=== PATIENT | male | born 1950 | race Caucasian/White ===

== ENCOUNTER 2016-04-27 11:55 | Day surgery (SDC) | payer MEDICARE, OTHER ==
[~2016-04-27] VITALS: Ht 172.7 cm; Wt 122.6 kg
[2016-04-27] VITALS (9 sets, daily range): BP systolic 122–144; BP diastolic 67–92; PULSE 70–81; RESP 10–20; O2SAT 92–98
[~2016-04-27 11:55] MED LIST: ACAI500C PO; ASCO100089 PO; ATOR80TA PO; CHROMIUM GTF; CINN500C14 PO; COQ10; CeFAZolin Inj 3 GM in Dextrose 5% 50 ML IV ONE; DILT120C10 PO; FURO40TA4 PO; GLUC1CAP8 PO; LISI10TA PO; MAGN400T4 PO; METF850T2 PO; METO-274 PO; MULT-1073 PO; POTA10TA12 PO; SILD20TA14 PO; WARF5TAB7 PO; [UNRECOGNIZED DRUG - OTHER]
[2016-04-27] MEDS ORDERED: Propofol 10,000 mCg/mL 20 mL Inj ONE (11:56)
[2016-04-27] MEDS ORDERED: MetoCLOpramide 5 mg/mL 2 mL Inj ONE (11:56)
[2016-04-27] MEDS ORDERED: Ondansetron 2 mg/mL 2 mL Inj ONE (11:56)
[2016-04-27] MEDS ORDERED: fentaNYL-PF 50 mCg/mL 2 mL Inj ONE (11:56)
[2016-04-27] MEDS ORDERED: Phenylephrine 10,000 mCg/mL Inj ONE (11:56)
[2016-04-27] MEDS: Lactated Ringer's 1,000 ML IV SCH ×2 (12:40→14:24)
[2016-04-27] MEDS ORDERED: CeFAZolin 2 Gm/50 mL D5W Duplex Bag IV ONE (12:54)
[2016-04-27 13:30] LABS: INR 1.2 ratio
--- NOTE | 2016-04-27 13:43 | PCM.HPANE ---
Patient Data Surgeon Admitting Provider: Attending Provider:Sherrie Mcdonald MD Primary Care Physician:Kendall Butler MD Other Provider[facility] Anest[facility] Reason for Visit Bladder Tumor Ht/WT & BMI Height (Feet): 5 Height (Inches): 8 Weight (Kilograms): 122.6 Body Mass Index 40.00 Allergies Coded Allergies: amiodarone (Verified Allergy, Severe, VENTRICULAR FIBRILLATION/TORSADE, 04/27/16) Past Anesthesia History Anesthesia History: Denies:: Anesthesia Reactions, Fam Anesthesia Reaction, Malignant Hyperthermia Diabetes History Hx Diabetes?: Yes Type of Diabetes: Type II Glycemic Control: Oral Medication Current Bedside Blood Glucose: 113 MRSA MRSA: No Medications Blood Thinner: Coumadin Hypertension Medication: Yes Home Meds Incl Beta Raymundo: Yes Date Beta Raymundo Taken: Apr 27, 2016 Time Beta Raymundo Taken: 629 Reported Medications Warfarin Sodium 5 Mg Tablet2.5 Mg PO mon, fri 30 Days Ref 0 04/26/16 Warfarin Sodium 5 Mg Tablet5 Mg PO 5xweekly 30 Days Ref 0 04/26/16 Ascorbic Acid (Vitamin C)1,000 Mg Tab.chew1,000 Mg PO DAILY Ref 0 04/26/16 Sildenafil Citrate (Sildenafil)20 Mg Tyowls258 Mg PO PRN erectile dysfunction 04/26/16 Potassium Chloride ER 10 Meq Azkykt91 Meq PO DAILY Ref 0 TAKE WITH FOOD 04/26/16 Metoprolol Succinate ER 100 Mg Tab.er.38z453 Mg PO DAILY Ref 0 04/26/16 Metformin 850 Mg Egbvnh968 Mg PO TID Ref 0 04/26/16 Magnesium Oxide 400 Mg Msligi822 Mg PO BID 04/26/16 Lisinopril 10 Mg Fsnhtq15 Mg PO DAILY 30 Days Ref 0 04/26/16 Atorvastatin (Lipitor)80 Mg Ejqbgp97 Mg PO DAILY Ref 0 04/26/16 Gluc Rodriguez/MSM/Magnesium/Vit C (Glucosamine Complex-MSM Cap)1 Each Capsule1 Each PO DAILY 04/26/16 [jia extract] No Conflict Jvyvv023 Mg BID 04/26/16 Furosemide 40 Mg Jkbaic63 Mg PO DAILY 04/26/16 Diltiazem ER 120 Mg Cap.er.78k480 Mg PO DAILY Ref 0 04/26/16 [Coq10] No Conflict Hmjap244 Mg DAILY 04/26/16 Cinnamon Bark (Cinnamon)500 Mg Capsule1,000 Mg PO DAILY 04/26/16 [chromium GTF] No Conflict Fmgfk201 Mcg DAILY 04/26/16 Multivits-Min/FA/Lycopene/Lut (Centrum Silver Tablet)1 Each Tablet1 Each PO DAILY 04/26/16 Acai Malin Extract (Acai Malin)500 Mg Dkwxfue669 Mg PO DAILY 04/26/16 Discontinued Reported Medications Garlic 500 Mg Wlxxrto101 Mg PO DAILY 12/13/15 Jia Root (Jia)250 Mg Qsevktc222 Mg PO DAILY 12/13/15 Diltiazem ER 120 Mg Cap.er.36r827 Mg PO DAILY Ref 0 08/15/15 Sildenafil Citrate (Sildenafil)20 Mg Gaxnlu957 Mg PO PRN 04/20/15 Furosemide (Lasix)40 Mg Ebkrds26 Mg PO DAILY 30 Days Ref 0 04/20/15 Chromium Amino Acid Chelate (Chromium)400 Mcg Qeblwv333 Mcg PO DAILY 04/20/15 Lisinopril (Zestril)10 Mg Tablet5 Mg PO DAILY 30 Days Ref 0 12/16/14 Warfarin Sodium 2.5 Mg Tablet5 Mg PO DAILY 30 Days Ref 0 08/27/14 Turmeric Root Extract (Turmeric)500 Mg Hrpwuea242 Mg PO DAILY 08/27/14 [alpesh red suppl] No Conflict Nchqs785 Mg PO DAILY 08/27/14 Potassium Chloride ER 10 Meq Tablet.er10 Meq PO DAILY 30 Days Ref 0 TAKE WITH FOOD 08/27/14 oxyCODONE-Acetaminophen 5-325 mg 1 Each Tablet1 Tab PO Q6H PRN For Pain Ref 0 08/27/14 Metoprolol Tartrate 100 Mg Cbvnru324 Mg PO BID 30 Days Ref 0 08/27/14 Metformin 500 Mg Venywd618 Mg PO BIDWM 30 Days Ref 0 08/27/14 Magnesium Oxide (Magnesium)400 Mg Sowwvvh249 Mg PO BID 08/27/14 Atorvastatin (Lipitor)80 Mg Whducc96 Mg PO DAILY 30 Days Ref 0 08/27/14 Gluc/Govind-MSM#1/Vit C/Naun/Bor (Ludochx-Gzpsa-RMX Complex Cplt)1 Each Tablet2 Each PO DAILY 08/27/14 Ubidecarenone/Vit E Acetate (Co Q-10 100 mg Softgel)1 Each Capsule1 Each PO DAILY 08/27/14 Cinnamon Bark (Cinnamon)500 Mg Capsule2 Capsule PO DAILY 08/27/14 Multivits-Min/FA/Lycopene/Lut (Centrum Silver Tablet)1 Each Tablet1 Each PO 08/27/14 History History of ENT Problems?: Yes Hx of Heart Problems?: Yes Cardiovascular History: Positive for:: AICD (BI-V) Abdominal Aortic Aneurism Atrial Fibrillation (hx PAF) Cardiac Surgery (Bi-V AICD, hx of stent ot LAD 2012) Congestive Heart Failure (hx of cardiomyopathy) Edema (Pedal occ.) Hypertension Irregular Heartbeat (PAF) Pacemaker (Bi-V ICD) Valvular Heart Disease (echo 06/2015- 55-60% EF) Denies:: Chest Pain (NSTEMI 11/2012) Heart Murmur Thrombophlebitis Hx of Respiratory Problem?: Yes Respiratory History: Positive for:: COPD Dyspnea (SIMMONS) Use of C-PAP Machine Denies:: Asthma Chest Surgery Oxygen Administration Pneumonia Tuberculosis Use of Inhalers / NEBS Hx Neurologic Problems?: No Neurological History: Denies:: CVA Headaches Multiple Sclerosis Parkinson's Disease Seizures TIA Hx of GI Problems?: No Gastrointestinal History: Denies:: Gall Bladder Disease Gastroesphageal Reflux Gastrointestinal Bleeding Heartburn Hiatal Hernia Hx of Problems?: Yes HX of Peritoneal Dialysis: No Other Pertinent History: bladder tumor- current admission problem Male Hx: Positive for:: Prostate Problems (S/P PROSTATECTOMY FOR CA) Denies:: Scrotal Mass Testicular Surgery Skin History: Denies:: History Skin Disorders? Pressure Ulcers Hx Musculoskeletal Problems?: Yes Musculoskeletal History: Positive for:: Back Injury (spinal stenosis, back injury when he was young.) Denies:: Joint Replacement Musculoskeletal Trauma Hx of Psycho/Social Problems?: Yes Psycho Social History: Positive for:: Anxiety Hx Surgeries?: Yes (TONSILS,ICD,HEART CATH/STENT,BLADDER BX,TURBT,PROSTATECTOMY ) Hx Any Other Health Problems?: Yes Other History: Positive for:: Cancer (Prostate,BLADDER) Hospitalization (Emergent for hypotension and tachycardia) Denies:: Endocrine Disease Thyroid Disease History Blood Transfusions: Denies:: Blood Transfuse Reaction Blood Transfusions Hx Diabetes: YesBedside Blood Glucose: 113 Hx Alcohol Use: NoHx Substance Use: No Smoking Status: Former Smoker Have You Smoked inLast 12 mo: No Stop/Bang P-Blood Pressure: treated: Yes B- Body Mass Index > 35 kg/m2: Yes A- Age over 50: Yes N- Neck Large Circumference: No G- Gender Male: Yes Risk Assessment Category Category 1A: Patient has history of documented sleep apnea, and HAS NOT received any narcotic, sedative or anesthesia administration during this stay. Category 1B: Patient has history of documented sleep apnea, and HAS received any narcotic , sedative or anesthesia administration during this stay Category 2: Patient has SUSPECTED Obstructive Sleep Apnea, and HAS received any narcotic , sedative or anesthesia administration during this stay. Category 3: Patient has SUSPECTED Obstructive Sleep Apnea and HAS NOT received narcotic, sedative or anesthesia administration during this stay. Category 4: Outpatient in Procedural Areas with known sleep apnea or who screen positive for High Risk via the STOP/BANG questionnaire. Exam Exam Vital Signs Vital Signs Date Time Temp Pulse Resp B/P Pulse Ox O2 Delivery O2 Flow Rate FiO2 04/27/16 12:45 36.6 77 16 140/85 96 Room Air 04/27/16 12:41 CPAP/BIPAP General Appearance: Alert, Oriented X3, Cooperative, No Acute Distress HEENT/AIRWAY: MP 2, Neck Movement (FROM), Mouth Opening (3 FBMO) Lungs: Normal Air Movement Heart: Other (irreg irreg) Meds/Labs/Diagnostics Admission Meds Current Medications Lactated Ringer's (Lr) 1,000 ml @ 120 mls/hr Q8H20M IV Last administered on t 12:40; Start 04/27/16 at 05:00; Stop 04/27/16 at 13:26; Status DC Bedside Blood Glucose: 113 Labs Test 04/27/16 13:00 Potassium Level 5.1mEq/L (3.5-5.2) Plan Impression Patient chart reviewed, patient interviewed and anesthestic plan with risks, benefits, and alternatives discussed, and informed consent obtained. NPO Status: 04/26 10PM ASA Physical Status: ASA3 Severe Disease (pacemaker a fib) Anesthetic Plan: GA Bene/Risks/Altern/Consents: Yes HP Complete Prior to Induction: Yes Nikko De León MD Apr 27, 2016 13:43
[2016-04-27] MEDS ORDERED: Lactated Ringer's 1,000 ML IV SCH (14:22)
[2016-04-27] MEDS ORDERED: Lactated Ringer's 500 ML IV PRN (14:22)
[2016-04-27] MEDS ORDERED: Phenylephrine 10,000 mCg/mL Inj IVPUSH PRN (14:25)
[2016-04-27] MEDS ORDERED: Ondansetron 2 mg/mL 2 mL Inj IVPUSH PRN (14:25)
[2016-04-27] MEDS ORDERED: fentaNYL-PF 50 mCg/mL 2 mL Inj IVPUSH PRN (14:25)
[2016-04-27] MEDS ORDERED: EPHEDrine Sulfate 50 mg/mL Inj IVPUSH PRN (14:25)
[2016-04-27] MEDS ORDERED: hydrALAZINE 20 mg/mL Inj IVPUSH PRN (14:25)
[2016-04-27] MEDS ORDERED: Labetalol 5 mg/mL 4 mL Inj IV PRN (14:25)
[2016-04-27] MEDS ORDERED: Atropine 0.4 mg/mL Inj IVPUSH PRN (14:25)
[2016-04-27] MEDS ORDERED: MetoCLOpramide 5 mg/mL 2 mL Inj IVPUSH PRN (14:25)
[2016-04-27] MEDS ORDERED: HYDROcodone-APAP 5-325 mg Tablet PO PRN (15:10)
--- NOTE | 2016-04-27 15:27 | OP ---
[address] [address] OPERATIVE REPORT PATIENT: ESPERANZA TREJO : 1950 MR#: [id number] ADMIT: 04/27/2016 JOB ID: [id number] DATE OF SURGERY: 04/27/2016 PREOPERATIVE DIAGNOSIS(ES): History of bladder cancer. POSTOPERATIVE DIAGNOSIS(ES): History of bladder cancer. PROCEDURE PERFORMED: 1. Cystoscopy and panendoscopy. 2. Bladder biopsy. SURGEON: Sherrie Mcdonald MD EMISSIONS REPAIR TECHNICIAN: None. FINDINGS: 1. Bilateral orthotopic ureteral orifices. 2. No evidence of bladder tumor recurrence. ANESTHESIA: General. ESTIMATED BLOOD LOSS: Less than 5 mL. DRAINS: None. SPECIMEN: Bladder biopsies. COMPLICATIONS: None. CONDITION: Stable. INDICATION FOR PROCEDURE: The patient is a 65-year-old gentleman with a history of bladder cancer. He is now status post intravesical mitomycin-C therapy. He now presents for bladder biopsies. DESCRIPTION OF PROCEDURE: After informed consent was obtained, the patient was taken to the operating room. A time-out was performed identifying correct patient, surgical site, and procedure. General anesthesia was smoothly induced. He was placed in the lithotomy position and all pressure points were identified and appropriately padded. A 22-Kazakh rigid cystoscope was applied to the patient's urethra and advanced to the bladder. The bladder was drained. Both ureteral orifices were seen in orthotopic position. Both 30 and 70 degree lenses were used to completely survey the bladder. There was no evidence of any suspicious lesions. Bladder biopsies then commenced of the posterior bladder wall and lateral crenshaw. These were passed off the table as bladder biopsies. Bugbee electrocautery was used to apply hemostasis to the biopsy sites. The bladder was then drained and reinspected. There was no bleeding at the end of the procedure. The bladder was then drained. The patient was then reversed from general anesthesia and taken to PACU in good and stable condition. GENET
--- NOTE | 2016-04-27 19:15 | PCM.ANEP2 ---
Post Anesthesia Evaluation ASA/CMS Post Anesthesia VS in Patient's Normal Range?: Yes Resp Stable; Airway Patent?: Yes CV Function & Hydration Stable: Yes Mental Status Recovered?: Yes Pain control Satisfactory?: Yes N/V Control Satisfactory?: Yes Nikko De León MD Apr 27, 2016 19:15
--- NOTE | 2016-04-27 19:15 | PCM.ANEP1 ---
Post Anesthesia Phase 1 PACU Phase 1 Assessment Vital Signs Vital Signs Date Time Temp Pulse Resp B/P Pulse Ox O2 Delivery O2 Flow Rate FiO2 04/27/16 15:44 36 81 16 131/75 92 Room Air 04/27/16 15:33 36.6 71 20 132/72 94 Room Air 04/27/16 15:30 70 16 122/75 93 Room Air 04/27/16 15:20 36.5 70 12 123/72 92 Room Air 04/27/16 15:15 70 10 139/67 94 Room Air 04/27/16 15:10 70 13 127/69 94 Room Air 04/27/16 15:05 73 16 135/84 92 Room Air 04/27/16 15:00 37.0 70 14 144/92 98 Simple Mask 8 04/27/16 12:45 36.6 77 16 140/85 96 Room Air 04/27/16 12:41 CPAP/BIPAP Anesthetic Administered: GA Level of Alertness: Awake, talking SLOAN's with Equal Strength: Yes Pain: No Nausea or Vomiting: No Oxygen Delivery: Simple Mask Lungs: Normal Air Movement Dermatome Level: Full Sensation Nikko De León MD Apr 27, 2016 19:15
--- NOTE | 2016-04-30 12:12 | PATH ---
SURGICAL PATHOLOGY Attending Physician:Sherrie Mcdonald, CASE STATUS: Signed Out PATIENT NAME: ESPERANZA TREOJ PID: [id number] : 1950 DATE COLLECTED:04/27/2016 23:46 SPECIMEN: Bladder, Biopsy CLINICAL HISTORY: MALIGNANT NEOPLASM OF BLADDER 1). BLADDER BIOPSY FINAL DIAGNOSIS: 1.BLADDER BIOPSY: NO EVIDENCE OF MALIGNANCY OR DYSPLASIA. ICD10 CODE Z85.51 GROSS DESCRIPTION: The specimen is received in one formalin filled container labeled with the patient's name, sublabeled "bladder" and consists of 4 portions of tissue which aggregate to 0.5 x 0.5 x 0.3 CM. The specimen is entirely submitted in one cassette. 04/28/2016 [facility] MICRO DESCRIPTION: See diagnosis. ICD-9 CODES: CPT CODES: 1: 65348 Electronically Signed Out Jean Paul Eid MD [facility] Pathology [facility] [address], [place] [address] Technical component performed at [facility], [facility] [address], [place], [address]
== END 2016-04-27 23:59 | disposition home or self-care (01) ==
LOC: SAS 11:55
PROVIDERS: ATTEND Urology
DX: C67.9 Malignant neoplasm of bladder, unspecified (principal); I25.5 Ischemic cardiomyopathy; I48.91 Unspecified atrial fibrillation; I10 Essential (primary) hypertension; E11.9 Type 2 diabetes mellitus without complications; Z95.810 Presence of automatic (implantable) cardiac defibrillator; Z79.01 Long term (current) use of anticoagulants
CPT/HCPCS: 36415; 52204; 84132; 85610; J0690; J2370; J2405; J2765; J7120